=== PATIENT | female | born 1950 | race Hispanic/Latino ===

== ENCOUNTER 2024-04-20 10:12 | Emergency (ER) | payer MEDICARE ==
[~2024-04-20] VITALS: Ht 167.6 cm; Wt 77.1 kg
[2024-04-20 10:27] VITALS: TEMP 98.5
[2024-04-20] MEDS: SODIUM CHLORIDE 0.9% 1000ML 1,000 ML IV STA (11:58)
[2024-04-20] MEDS: KETOROLAC TROMETHAMINE 30 MG/ML VIAL IV STA (11:58)
[2024-04-20] MEDS ORDERED: IOPAMIDOL 370 MG/ML 100 ML INFUS..BTL INJ ONE (12:20)
[2024-04-20] MEDS ORDERED: CIPRO500 MG PO (13:45)
[2024-04-20] MEDS ORDERED: METRONIDAZOLE500 MG PO (13:55)
[2024-04-20] MEDS ORDERED: PANTOPRAZOLE SO40 MG PO (13:58)
[2024-04-20 14:25] VITALS: PULSE 74; RESP 18; O2SAT 99
== END 2024-04-20 14:20 | disposition home or self-care (01) ==
LOC: FSED 10:19
DX: R10.30 Lower abdominal pain, unspecified (principal); R93.89 Abnormal findings on diagnostic imaging of other specified body structures; K76.0 Fatty (change of) liver, not elsewhere classified; K52.9 Noninfective gastroenteritis and colitis, unspecified; K29.70 Gastritis, unspecified, without bleeding; E11.9 Type 2 diabetes mellitus without complications; I10 Essential (primary) hypertension; E78.5 Hyperlipidemia, unspecified; E03.9 Hypothyroidism, unspecified
CPT/HCPCS: 74177; 80048; 80076; 81003; 85025; 99284; J1885; J7030; Q9967